=== PATIENT | male | born 1970 | race Caucasian/White ===

== ENCOUNTER 2016-03-28 14:25 | Inpatient (IN) | payer OTHER ==
[~2016-03-28] VITALS: Ht 190.5 cm; Wt 162.4 kg
[~2016-03-28 14:25] MED LIST: ABILIFY10 MG PO; ACID REDUCER 1150 MG PO; AMBIEN10 MG PO; AMOXICILLIN500 MG PO; ASPIR-LOW81 MG PO; ATARAX,VISTARIL50 MG PO; AUGMENTIN875 MG PO; BACTRIM,SEPT1 TABLET PO; CATAPRES0.2 MG PO; CIPRODEX OTIC7.5 ML LEFT EAR; CLARITIN,ALAVAR10 MG PO; CLINDAMYCIN HC300 MG PO; CLONIDINE HCL0.2 MG PO; COUMADIN5 MG PO; CUBICIN500 MG/10 IV; DEBROX15 ML RIGHT EAR; DOXYCYCLINE HY100 M1 PO; DOXYCYCLINE HY100 MG PO; Dulcolax PR; ECONAZOLE NITRA15 GM TP; ENDOCET 5-3251 EACH PO; FLONASE16 G1 BOTH NARES; Feosol PO; GABAPENTIN100 MG PO; GABAPENTIN300 MG PO; GABAPENTIN400 MG PO; HUMALOG MI100 UNIT/5 SC; HUMULIN 70100 UNIT/2; HUMULIN 70100 UNIT/2 SQ; ILOTYCIN1 GM RIGHT EYE; LANTUS 10100 UNITS/ SC; LANTUS 3 M100 UNITS1 SC; LISINOPRIL40 MG PO; LOPRESSOR25 MG PO; LORTAB 5-325 M1 EACH PO; NAPROXEN500 MG PO; NEURONTIN100 MG PO; NORCO 5/3251 TABLET PO; NOVOLOG MI100 UNIT/4 SC; NOVOLOG MI100 UNIT/M PO; NOVOLOG MI100 UNIT/M SC; Neurontin PO; PANTOPRAZOLE SO40 MG PO; PEN-VEE K,VEET500 MG PO; PRAVASTATIN SOD40 MG PO; PREDNISONE20 MG PO; PRINIVIL20 MG PO; PROTONIX40 MG PO; Pravachol PO; RANITIDINE HCL150 MG PO; SAPHRIS10 MG SL; TESSALON PERLE100 MG PO; TRAMADOL HCL50 MG PO; ULTRAM50 MG PO; VENLAFAXINE H37.5 M3 PO; VENLAFAXINE HC150 M1 PO; VENLAFAXINE HCL75 M3 PO; VENTOLIN HFA18 GM IH; VIAGRA50 MG PO; WESTCORT15 G1 TP; XARELTO20 MG PO; ZITHROMAX Z-PA250 MG PO
[2016-03-28 16:34] LABS: HEMATOCRIT 36.1 % (38.0-50.0); MCH 27.9 PG (29.0-34.0); MCV 84.5 FL (86-99); MEAN PLAT.VOLUME 10.5 uM^3 (9.0-12.4); PLATELET COUNT 274 K/uL (156-360); RBC DIS.WIDTH-CV 14.1 % (11.8-14.6); RBC DIS.WIDTH-SD 42.3 % (39-53); RED BLOOD COUNT 4.27 M/uL (4.00-5.50); WHITE BLOOD COUNT 11.4 K/uL (4.1-10.2)
[2016-03-28 16:43] LABS: CHLORIDE 101 mEq/L (99-109)
[2016-03-28 16:44] LABS: POTASSIUM 4.1 mEq/L (3.7-5.4); SODIUM 136 mEq/L (136-147)
[2016-03-28 16:45] LABS: GLUCOSE 102 mg/dL (70-99)
[2016-03-28 16:47] LABS: ANION GAP 11 MEQ/L (2-14)
[2016-03-28 16:49] LABS: GFR ESTIMATE (CALCULATED) > 59 mL/min/
[2016-03-28 16:50] LABS: UREA NITROGEN (BUN) 19 mg/dL (9-23)
[2016-03-28] MEDS ORDERED: NORCO 5/3251 TABLET PO (19:07)
[2016-03-28 21:59] VITALS: BP 162/74
[2016-03-28 22:36] LABS: INTER. NORMALIZED RATIO 1.2; PROTHROMBIN TIME 12.6 (9.2-11.2); PTT 38.3 (25-32)
[2016-03-29 05:58] LABS: POINT-OF-CARE METER ID UU13113717
[2016-03-29 06:03] LABS: EOSINOPHIL (%) 1.5 % (0-5); EOSINOPHIL COUNT 0.1 K/uL (0-0.3); HEMATOCRIT 33.4 % (38.0-50.0); IMMATURE GRANULOCYTE (%) 0.3 % (0.0-0.7); LYMPHOCYTE COUNT 2.2 K/uL (1.0-2.8); MCH 27.7 PG (29.0-34.0); MCHC 31.7 G/DL (30.0-36.0); MCV 87.4 FL (86-99); MEAN PLAT.VOLUME 10.5 uM^3 (9.0-12.4); MONOCYTE (%) 13.4 % (3-12); MONOCYTE COUNT 1.2 K/uL (0-0.8); NEUTROPHIL (%) 60.3 % (45-76); NEUTROPHIL COUNT 5.3 K/uL (1.8-6.4); PLATELET COUNT 231 K/uL (156-360); RBC DIS.WIDTH-CV 14.5 % (11.8-14.6); RBC DIS.WIDTH-SD 45.2 % (39-53); RED BLOOD COUNT 3.82 M/uL (4.00-5.50); WHITE BLOOD COUNT 8.9 K/uL (4.1-10.2)
[2016-03-29 06:59] LABS: ANION GAP 7 MEQ/L (2-14); CHLORIDE 101 MEQ/L (99-109); POTASSIUM 4.1 MEQ/L (3.7-5.4); SAMPLE HEMOLYSIS CHECK 1; SAMPLE ICTERIC CHECK 0; SAMPLE LIPEMIA CHECK 0; SODIUM 136 MEQ/L (136-147)
[2016-03-29 07:04] LABS: GFR ESTIMATE (CALCULATED) > 59 mL/min/; GLUCOSE 133 mg/dL (70-99); UREA NITROGEN (BUN) 19 mg/dL (9-23)
[2016-03-29 08:15] VITALS: BP 143/73
[2016-03-29 17:11] LABS: POINT-OF-CARE METER ID UU13113725
[2016-03-29 17:43] LABS: INTER. NORMALIZED RATIO 1.3; PROTHROMBIN TIME 13.1 (9.2-11.2)
[2016-03-29 20:58] LABS: POINT-OF-CARE METER ID UU13113717
[2016-03-29 22:25] VITALS: BP 134/75
[2016-03-30 05:53] LABS: POINT-OF-CARE METER ID UU13113717
[2016-03-30 06:46] LABS: INTER. NORMALIZED RATIO 1.4; PROTHROMBIN TIME 14.1 (9.2-11.2)
[2016-03-30 07:01] LABS: POINT-OF-CARE METER ID UU13113725
[2016-03-30 09:04] VITALS: BP 169/74
[2016-03-30 15:00] VITALS: BP 176/75
[2016-03-30 21:06] LABS: POINT-OF-CARE METER ID UU13113717
[2016-03-30 22:56] VITALS: BP 122/58
[2016-03-31 05:52] LABS: POINT-OF-CARE METER ID UU13113725
[2016-03-31 07:12] LABS: INTER. NORMALIZED RATIO 1.6; PROTHROMBIN TIME 16.1 (9.2-11.2)
[2016-03-31 08:41] VITALS: BP 141/66
[2016-03-31 11:41] LABS: POINT-OF-CARE METER ID UU13113725
[2016-03-31 12:28] VITALS: BP 141/66
[2016-03-31 16:25] VITALS: BP 158/82
[2016-03-31 17:02] LABS: POINT-OF-CARE METER ID UU13113717
[2016-03-31 21:15] LABS: POINT-OF-CARE METER ID UU13113725
[2016-03-31 23:14] VITALS: BP 168/85
[2016-04-01 06:04] LABS: POINT-OF-CARE METER ID UU13113725
[2016-04-01 06:26] LABS: POINT-OF-CARE METER ID UU13113725
[2016-04-01 07:11] LABS: POINT-OF-CARE METER ID UU13113725
[2016-04-01 07:11] LABS: INTER. NORMALIZED RATIO 1.8; PROTHROMBIN TIME 18.2 (9.2-11.2)
[2016-04-01 07:16] LABS: GFR ESTIMATE (CALCULATED) > 59 mL/min/; UREA NITROGEN (BUN) 16 mg/dL (9-23)
[2016-04-01 07:39] VITALS: BP 131/66
[2016-04-01 16:05] LABS: POINT-OF-CARE METER ID UU13113725
[2016-04-01 16:30] VITALS: BP 158/80
[2016-04-01 21:23] LABS: POINT-OF-CARE METER ID UU13113725
[2016-04-01 23:06] VITALS: BP 122/74
[2016-04-02 06:48] LABS: EOSINOPHIL (%) 4.1 % (0-5); EOSINOPHIL COUNT 0.2 K/uL (0-0.3); HEMATOCRIT 30.5 % (38.0-50.0); IMMATURE GRANULOCYTE (%) 0.2 % (0.0-0.7); LYMPHOCYTE COUNT 1.6 K/uL (1.0-2.8); MCH 27.5 PG (29.0-34.0); MCHC 31.5 G/DL (30.0-36.0); MCV 87.4 FL (86-99); MEAN PLAT.VOLUME 10.1 uM^3 (9.0-12.4); MONOCYTE COUNT 0.5 K/uL (0-0.8); NEUTROPHIL (%) 53.7 % (45-76); NEUTROPHIL COUNT 2.7 K/uL (1.8-6.4); PLATELET COUNT 276 K/uL (156-360); RBC DIS.WIDTH-CV 14.4 % (11.8-14.6); RBC DIS.WIDTH-SD 45.6 % (39-53); RED BLOOD COUNT 3.49 M/uL (4.00-5.50)
[2016-04-02 06:52] LABS: WHITE BLOOD COUNT 5.1 K/uL (4.1-10.2)
[2016-04-02 06:57] LABS: INTER. NORMALIZED RATIO 1.9; PROTHROMBIN TIME 19.9 (9.2-11.2)
[2016-04-02 07:10] LABS: ANION GAP 6 MEQ/L (2-14); CHLORIDE 104 MEQ/L (99-109); GFR ESTIMATE (CALCULATED) > 59 mL/min/; GLUCOSE 122 mg/dL (70-99); SAMPLE HEMOLYSIS CHECK 0; SAMPLE ICTERIC CHECK 0; SAMPLE LIPEMIA CHECK 0; SODIUM 139 MEQ/L (136-147); UREA NITROGEN (BUN) 16 mg/dL (9-23)
[2016-04-02 08:26] VITALS: BP 137/75
[2016-04-02 16:34] LABS: POINT-OF-CARE METER ID UU13113717
[2016-04-02 18:00] VITALS: BP 164/79
[2016-04-02 20:51] LABS: POINT-OF-CARE METER ID UU13113717
[2016-04-02 23:14] VITALS: BP 129/59
[2016-04-03 03:25] VITALS: BP 139/67
[2016-04-03 06:41] LABS: HEMATOCRIT 33.2 % (38.0-50.0); MCH 27.5 PG (29.0-34.0); MCHC 31.6 G/DL (30.0-36.0); MCV 86.9 FL (86-99); MEAN PLAT.VOLUME 9.6 uM^3 (9.0-12.4); PLATELET COUNT 298 K/uL (156-360); RBC DIS.WIDTH-CV 14.2 % (11.8-14.6); RBC DIS.WIDTH-SD 44.7 % (39-53); RED BLOOD COUNT 3.82 M/uL (4.00-5.50); WHITE BLOOD COUNT 6.4 K/uL (4.1-10.2)
[2016-04-03 06:49] LABS: INTER. NORMALIZED RATIO 1.9; PROTHROMBIN TIME 20.1 (9.2-11.2)
[2016-04-03 07:14] LABS: ANION GAP 6 MEQ/L (2-14); CHLORIDE 100 MEQ/L (99-109); GFR ESTIMATE (CALCULATED) > 59 mL/min/; MAGNESIUM 1.8 mg/dl (1.3-2.7); POTASSIUM 4.5 MEQ/L (3.7-5.4); SAMPLE HEMOLYSIS CHECK 0; SAMPLE ICTERIC CHECK 0; SAMPLE LIPEMIA CHECK 0; SODIUM 136 MEQ/L (136-147); UREA NITROGEN (BUN) 18 mg/dL (9-23)
[2016-04-03 07:16] LABS: GLUCOSE 212 mg/dL (70-99)
[2016-04-03 08:15] VITALS: BP 138/83
[2016-04-03 12:50] LABS: POINT-OF-CARE METER ID UU13113717
[2016-04-03 16:08] VITALS: BP 150/84
[2016-04-03 16:27] LABS: POINT-OF-CARE METER ID UU13113725
[2016-04-03 21:03] LABS: POINT-OF-CARE METER ID UU13113717
[2016-04-03 22:55] VITALS: BP 134/75
[2016-04-04 06:10] LABS: POINT-OF-CARE METER ID UU13113717
[2016-04-04 08:16] VITALS: BP 147/72
[2016-04-04 09:49] LABS: INTER. NORMALIZED RATIO 2.1; PROTHROMBIN TIME 21.4 (9.2-11.2)
[2016-04-04 10:01] LABS: POINT-OF-CARE METER ID UU13113717
[2016-04-04 10:02] LABS: POINT-OF-CARE METER ID UU13113725
[2016-04-04 10:48] LABS: POINT-OF-CARE METER ID UU13113725
[2016-04-04 11:34] LABS: POINT-OF-CARE METER ID UU13113717
[2016-04-04] MEDS ORDERED: BACTRIM,SEPT1 TABLET PO (13:32)
[2016-04-04] MEDS ORDERED: COUMADIN5 MG PO ×2 (14:07→16:14)
== END 2016-04-04 17:31 | disposition home or self-care (01) | DRG 637 ==
LOC: EME 14:25 → 5EAST 20:08 → EDOF 20:08 → 5EAST 21:29
PROVIDERS: Hospitalist; Internal Medicine; Physician Assistant
PROC: 0J9P0ZX Drainage of Left Lower Leg Subcutaneous Tissue and Fascia, Open Approach, Diagnostic (ICD-10-PCS; principal; 2016-03-31)
DX: E11.69 Type 2 diabetes mellitus with other specified complication (principal); L03.116 Cellulitis of left lower limb; L89.893 Pressure ulcer of other site, stage 3; L02.416 Cutaneous abscess of left lower limb; T87.89 Other complications of amputation stump; Z68.41 Body mass index [BMI] 40.0-44.9, adult; E11.42 Type 2 diabetes mellitus with diabetic polyneuropathy; Y83.5 Amputation of limb(s) as the cause of abnormal reaction of the patient, or of later complication, without mention of misadventure at the time of the procedure; E66.01 Morbid (severe) obesity due to excess calories; I48.0 Paroxysmal atrial fibrillation; Z89.511 Acquired absence of right leg below knee; Z89.022 Acquired absence of left finger(s); I10 Essential (primary) hypertension; K21.9 Gastro-esophageal reflux disease without esophagitis; F31.9 Bipolar disorder, unspecified; E11.65 Type 2 diabetes mellitus with hyperglycemia; Z86.73 Personal history of transient ischemic attack (TIA), and cerebral infarction without residual deficits; Z91.11 Patient's noncompliance with dietary regimen; E11.621 Type 2 diabetes mellitus with foot ulcer; L97.521 Non-pressure chronic ulcer of other part of left foot limited to breakdown of skin; Z86.14 Personal history of Methicillin resistant Staphylococcus aureus infection; I83.028 Varicose veins of left lower extremity with ulcer other part of lower leg; L97.821 Non-pressure chronic ulcer of other part of left lower leg limited to breakdown of skin; S91.002A Unspecified open wound, left ankle, initial encounter; B95.62 Methicillin resistant Staphylococcus aureus infection as the cause of diseases classified elsewhere
CPT/HCPCS: 73630; 73720; 80048; 80202; 82565; 82948; 83605; 83735; 84520; 85025; 85027; 85610; 85730; 87040; 87070; 87075; 87077; 87147; 87186; 87205; 93971; 99281; 99285; J0690; J1815; J2270; J3370

== ENCOUNTER 2016-05-03 21:48 | Emergency (ER) | payer OTHER ==
[~2016-05-03] VITALS: Ht 190.5 cm; Wt 160.0 kg
[2016-05-03 23:25] LABS: HEMATOCRIT 35.3 % (38.0-50.0); MCHC 32.9 G/DL (30.0-36.0); MCV 85.3 FL (86-99); MEAN PLAT.VOLUME 10.4 uM^3 (9.0-12.4); PLATELET COUNT 257 K/uL (156-360); RBC DIS.WIDTH-CV 14.3 % (11.8-14.6); RBC DIS.WIDTH-SD 43.4 % (39-53); RED BLOOD COUNT 4.14 M/uL (4.00-5.50)
[2016-05-03 23:32] LABS: CHLORIDE 105 mEq/L (99-109); POTASSIUM 3.8 mEq/L (3.7-5.4); SODIUM 140 mEq/L (136-147)
[2016-05-03 23:34] LABS: GLUCOSE 108 mg/dL (70-99)
[2016-05-03 23:36] LABS: ANION GAP 9 MEQ/L (2-14)
[2016-05-03 23:38] LABS: GFR ESTIMATE (CALCULATED) > 59 mL/min/
[2016-05-03 23:39] LABS: UREA NITROGEN (BUN) 25 mg/dL (9-23)
[2016-05-04 00:54] VITALS: BP 148/56
[2016-05-04 08:12] LABS: Estimated Average Glucose 194 mg/dL (70-123); HEMOGLOBIN A1c (GLYCOHEMOGLOB) 8.4 % HGB (Below 5.7)
== END 2016-05-04 00:55 | disposition home or self-care (01) ==
LOC: EME 21:48
PROVIDERS: Emergency Medicine
DX: S83.92XA Sprain of unspecified site of left knee, initial encounter (principal); E11.9 Type 2 diabetes mellitus without complications; I10 Essential (primary) hypertension; F31.9 Bipolar disorder, unspecified; S81.802A Unspecified open wound, left lower leg, initial encounter; K21.9 Gastro-esophageal reflux disease without esophagitis; Z89.511 Acquired absence of right leg below knee; Z89.021 Acquired absence of right finger(s); Z79.01 Long term (current) use of anticoagulants; Z79.4 Long term (current) use of insulin
CPT/HCPCS: 73564; 80048; 83036; 85027; 93971

== ENCOUNTER 2016-05-22 10:03 | Inpatient (IN) | payer OTHER ==
[~2016-05-22] VITALS: Ht 190.5 cm; Wt 161.9 kg
[2016-05-22 16:00] VITALS: BP 177/95
[2016-05-22 17:11] LABS: POINT-OF-CARE METER ID UU14174225
[2016-05-22 19:52] VITALS: BP 161/96
[2016-05-22 21:31] LABS: POINT-OF-CARE METER ID UU14188625
[2016-05-22 23:48] VITALS: BP 196/91
[2016-05-23 04:28] VITALS: BP 164/93
[2016-05-23 06:51] LABS: HEMATOCRIT 35.8 % (38.0-50.0); MCH 26.3 PG (29.0-34.0); MCHC 30.7 G/DL (30.0-36.0); MCV 85.4 FL (86-99); MEAN PLAT.VOLUME 10.1 uM^3 (9.0-12.4); PLATELET COUNT 307 K/uL (156-360); RBC DIS.WIDTH-CV 14.3 % (11.8-14.6); RED BLOOD COUNT 4.19 M/uL (4.00-5.50); WHITE BLOOD COUNT 4.8 K/uL (4.1-10.2)
[2016-05-23 07:16] LABS: INTER. NORMALIZED RATIO 2.6; PROTHROMBIN TIME 27.6 (9.2-11.2)
[2016-05-23 07:18] LABS: ANION GAP 6 MEQ/L (2-14); CHLORIDE 104 MEQ/L (99-109); GFR ESTIMATE (CALCULATED) > 59 mL/min/; GLUCOSE 89 mg/dL (70-99); POTASSIUM 4.2 MEQ/L (3.7-5.4); SAMPLE HEMOLYSIS CHECK 0; SAMPLE ICTERIC CHECK 0; SAMPLE LIPEMIA CHECK 0; SODIUM 140 MEQ/L (136-147); UREA NITROGEN (BUN) 19 mg/dL (9-23)
[2016-05-23 08:31] VITALS: BP 122/72
[2016-05-23] MEDS ORDERED: LANTUS 10100 UNITS/ SC (09:26)
[2016-05-23] MEDS ORDERED: HUMALOG MI100 UNIT/5 SC ×2 (09:28→09:29)
[2016-05-23] MEDS ORDERED: WARFARIN SODIU2.5 MG PO (09:33)
[2016-05-23] MEDS ORDERED: WARFARIN SODIUM5 MG PO ×2 (09:34)
[2016-05-23 12:27] LABS: POINT-OF-CARE USER ID STWAMT51
[2016-05-23 12:38] VITALS: BP 130/60
[2016-05-23 15:06] VITALS: BP 160/100
[2016-05-23 19:54] VITALS: BP 176/79
[2016-05-23 21:51] LABS: POINT-OF-CARE METER ID UU14188625
[2016-05-23 23:46] VITALS: BP 180/77
[2016-05-24 03:43] VITALS: BP 164/95
[2016-05-24 07:06] LABS: EOSINOPHIL (%) 3.7 % (0-5); EOSINOPHIL COUNT 0.2 K/uL (0-0.3); HEMATOCRIT 32.9 % (38.0-50.0); LYMPHOCYTE COUNT 1.4 K/uL (1.0-2.8); MCH 26.4 PG (29.0-34.0); MCHC 30.7 G/DL (30.0-36.0); MCV 85.9 FL (86-99); MEAN PLAT.VOLUME 9.7 uM^3 (9.0-12.4); MONOCYTE COUNT 0.7 K/uL (0-0.8); NEUTROPHIL (%) 49.9 % (45-76); NEUTROPHIL COUNT 2.2 K/uL (1.8-6.4); PLATELET COUNT 280 K/uL (156-360); RBC DIS.WIDTH-CV 14.4 % (11.8-14.6); RED BLOOD COUNT 3.83 M/uL (4.00-5.50); WHITE BLOOD COUNT 4.3 K/uL (4.1-10.2)
[2016-05-24 07:37] LABS: ANION GAP 6 MEQ/L (2-14); CHLORIDE 102 MEQ/L (99-109); GFR ESTIMATE (CALCULATED) > 59 mL/min/; POTASSIUM 4.5 MEQ/L (3.7-5.4); SAMPLE HEMOLYSIS CHECK 0; SAMPLE ICTERIC CHECK 0; SAMPLE LIPEMIA CHECK 0; SODIUM 136 MEQ/L (136-147); UREA NITROGEN (BUN) 17 mg/dL (9-23)
[2016-05-24 07:38] LABS: GLUCOSE 203 mg/dL (70-99)
[2016-05-24 07:57] VITALS: BP 136/81
[2016-05-24 09:45] LABS: INTER. NORMALIZED RATIO 1.9; PROTHROMBIN TIME 19.6 (9.2-11.2)
[2016-05-24 11:13] VITALS: BP 129/76
[2016-05-24 15:01] VITALS: BP 123/72
[2016-05-24 20:32] VITALS: BP 160/72
[2016-05-24 23:48] LABS: POINT-OF-CARE METER ID UU14188625
[2016-05-24 23:58] VITALS: BP 164/88
[2016-05-25 04:07] VITALS: BP 169/80
[2016-05-25 08:05] VITALS: BP 157/79
[2016-05-25 08:56] LABS: EOSINOPHIL (%) 4.4 % (0-5); EOSINOPHIL COUNT 0.2 K/uL (0-0.3); IMMATURE GRANULOCYTE (%) 0.2 % (0.0-0.7); LYMPHOCYTE COUNT 1.3 K/uL (1.0-2.8); MCH 26.7 PG (29.0-34.0); MCHC 31.1 G/DL (30.0-36.0); MCV 85.8 FL (86-99); MEAN PLAT.VOLUME 9.6 uM^3 (9.0-12.4); MONOCYTE (%) 12.9 % (3-12); MONOCYTE COUNT 0.6 K/uL (0-0.8); NEUTROPHIL (%) 56.2 % (45-76); NEUTROPHIL COUNT 2.8 K/uL (1.8-6.4); PLATELET COUNT 294 K/uL (156-360); RBC DIS.WIDTH-CV 14.5 % (11.8-14.6); RBC DIS.WIDTH-SD 45.1 % (39-53); RED BLOOD COUNT 4.31 M/uL (4.00-5.50)
[2016-05-25 09:06] LABS: INTER. NORMALIZED RATIO 1.7; PROTHROMBIN TIME 17.5 (9.2-11.2)
[2016-05-25 10:22] LABS: ANION GAP 11 MEQ/L (2-14); C-REACTIVE PROTEIN 22.2 MG/L (0-10); CHLORIDE 100 MEQ/L (99-109); GFR ESTIMATE (CALCULATED) > 59 mL/min/; POTASSIUM 4.1 MEQ/L (3.7-5.4); SAMPLE HEMOLYSIS CHECK 0; SAMPLE ICTERIC CHECK 0; SAMPLE LIPEMIA CHECK 0; SODIUM 137 MEQ/L (136-147); UREA NITROGEN (BUN) 15 mg/dL (9-23)
[2016-05-25 10:23] LABS: GLUCOSE 113 mg/dL (70-99)
[2016-05-25 10:40] LABS: ERTH.SED.RATE 116 MM/HR (0-15)
[2016-05-25 12:55] LABS: POINT-OF-CARE METER ID UU14188625
[2016-05-25 13:44] VITALS: BP 150/64
[2016-05-25] MEDS ORDERED: VANCOMYCIN HCL1 GM IV (14:20)
[2016-05-25 15:30] VITALS: BP 154/71
[2016-05-25 17:09] LABS: POINT-OF-CARE METER ID UU14174225
[2016-05-25 19:40] VITALS: BP 188/87
[2016-05-25 21:14] LABS: POINT-OF-CARE METER ID UU14174225
[2016-05-26] VITALS: BP 156/73
[2016-05-26 04:00] VITALS: BP 137/78
[2016-05-26 05:17] VITALS: BP 137/78
[2016-05-26 07:23] VITALS: BP 126/63
[2016-05-26 11:08] VITALS: BP 118/66
[2016-05-26 15:10] LABS: INTER. NORMALIZED RATIO 1.7; PROTHROMBIN TIME 17.7 (9.2-11.2)
== END 2016-05-26 16:00 | disposition home health service (06) | DRG 540 ==
LOC: 5EAST 10:03 → 5SOUTH 13:57 → 2SOUTH 13:57 → 5SOUTH 15:15
PROVIDERS: Internal Medicine; Internal Medicine Infectious Disease; Student in an Organized Health Care Education/Training Program
PROC: 02HV33Z Insertion of Infusion Device into Superior Vena Cava, Percutaneous Approach (ICD-10-PCS; principal; 2016-05-22)
DX: M86.172 Other acute osteomyelitis, left ankle and foot (principal); L03.116 Cellulitis of left lower limb; E11.42 Type 2 diabetes mellitus with diabetic polyneuropathy; E11.51 Type 2 diabetes mellitus with diabetic peripheral angiopathy without gangrene; Z68.41 Body mass index [BMI] 40.0-44.9, adult; M21.172 Varus deformity, not elsewhere classified, left ankle; E66.01 Morbid (severe) obesity due to excess calories; Z79.4 Long term (current) use of insulin; E11.65 Type 2 diabetes mellitus with hyperglycemia; Z89.511 Acquired absence of right leg below knee; F31.9 Bipolar disorder, unspecified; I10 Essential (primary) hypertension; I48.0 Paroxysmal atrial fibrillation; Z79.01 Long term (current) use of anticoagulants; L97.329 Non-pressure chronic ulcer of left ankle with unspecified severity; Z86.73 Personal history of transient ischemic attack (TIA), and cerebral infarction without residual deficits; Z86.14 Personal history of Methicillin resistant Staphylococcus aureus infection; M65.872 Other synovitis and tenosynovitis, left ankle and foot
CPT/HCPCS: 76937; 80048; 80202; 82948; 85025; 85027; 85610; 85651; 86140; 93926; J1815; J2543; J3370; J7030; J7050

== ENCOUNTER 2016-07-18 17:56 | Observation (INO) | payer OTHER ==
[~2016-07-18] VITALS: Ht 190.5 cm; Wt 153.0 kg
[~2016-07-18 17:56] MED LIST changes: +VANCOMYCIN HCL1 GM IV; +WARFARIN SODIU2.5 MG PO; +WARFARIN SODIUM5 MG PO
[2016-07-18 18:50] LABS: EOSINOPHIL (%) 2.1 % (0-5); EOSINOPHIL COUNT 0.2 K/uL (0-0.3); HEMATOCRIT 36.5 % (38.0-50.0); IMMATURE GRANULOCYTE (%) 0.3 % (0.0-0.7); INSTRUMENT ABS NEUTROPHIL CT 5.9 K/uL; LYMPHOCYTE COUNT 1.1 K/uL (1.0-2.8); MCH 28.5 PG (29.0-34.0); MCHC 33.2 G/DL (30.0-36.0); MCV 85.9 FL (86-99); MEAN PLAT.VOLUME 10.5 uM^3 (9.0-12.4); MONOCYTE COUNT 0.5 K/uL (0-0.8); NEUTROPHIL (%) 76.1 % (45-76); NEUTROPHIL COUNT 5.9 K/uL (1.8-6.4); PLATELET COUNT 278 K/uL (156-360); RBC DIS.WIDTH-CV 14.6 % (11.8-14.6); RBC DIS.WIDTH-SD 45.2 % (39-53); RED BLOOD COUNT 4.25 M/uL (4.00-5.50); WHITE BLOOD COUNT 7.7 K/uL (4.1-10.2)
[2016-07-18 19:01] LABS: CHLORIDE 106 mEq/L (99-109); POTASSIUM 4.7 mEq/L (3.7-5.4); SODIUM 139 mEq/L (136-147)
[2016-07-18 19:03] LABS: GLUCOSE 186 mg/dL (70-99)
[2016-07-18 19:04] LABS: ANION GAP 8 MEQ/L (2-14); INTER. NORMALIZED RATIO 2.2; PROTHROMBIN TIME 23.2 (9.2-11.2)
[2016-07-18 19:07] LABS: GFR ESTIMATE (CALCULATED) 54 mL/min/
[2016-07-18 19:08] LABS: UREA NITROGEN (BUN) 31 mg/dL (9-23)
[2016-07-18] MEDS ORDERED: NORVASC5 MG PO (20:28)
[2016-07-18] MEDS ORDERED: BACTRIM,SEPT1 TABLET PO (20:29)
[2016-07-18 21:13] LABS: POINT-OF-CARE METER ID UU14100415
[2016-07-18 21:16] LABS: HDL CHOLESTEROL 23 MG/DL (Desirable>=40); LDL CHOLESTEROL 29 mg/dL (Desirable<100); NON-HDL CHOLESTEROL 85 mg/dL (Desirable<160); TOTAL CHOLESTEROL 108 mg/dL (Desirable<200); TRIGLYCERIDES 280 MG/DL (Normal: <150)
[2016-07-18 22:09] VITALS: BP 162/74
[2016-07-18 22:26] LABS: POINT-OF-CARE METER ID UU13113700
[2016-07-19 04:00] VITALS: BP 108/57
[2016-07-19 05:44] LABS: INTER. NORMALIZED RATIO 2.2
[2016-07-19 07:44] LABS: Estimated Average Glucose 169 mg/dL (70-123); HEMOGLOBIN A1c (GLYCOHEMOGLOB) 7.5 % HGB (Below 5.7)
[2016-07-19 07:45] VITALS: BP 138/76
[2016-07-19 07:54] LABS: POINT-OF-CARE METER ID UU13113700
[2016-07-19 09:26] LABS: ANION GAP 7 MEQ/L (2-14); CHLORIDE 105 MEQ/L (99-109); GFR ESTIMATE (CALCULATED) > 59 mL/min/; GLUCOSE 183 mg/dL (70-99); POTASSIUM 4.4 MEQ/L (3.7-5.4); SAMPLE HEMOLYSIS CHECK 0; SAMPLE ICTERIC CHECK 0; SAMPLE LIPEMIA CHECK 0; SODIUM 139 MEQ/L (136-147); UREA NITROGEN (BUN) 28 mg/dL (9-23)
[2016-07-19] MEDS ORDERED: LO-DOSE ASPIRIN81 M2 PO (10:59)
== END 2016-07-19 14:21 | disposition home or self-care (01) ==
LOC: EME 17:56 → 5WEST 19:49 → EDOF 19:49 → 5WEST 22:03
PROVIDERS: Emergency Medicine; Hospitalist; Internal Medicine; Physician Assistant Medical
PROC: 0HBLXZZ Excision of Left Lower Leg Skin, External Approach (ICD-10-PCS; principal; 2016-07-19)
DX: R20.2 Paresthesia of skin (principal); N17.9 Acute kidney failure, unspecified; T81.89XA Other complications of procedures, not elsewhere classified, initial encounter; Y84.8 Other medical procedures as the cause of abnormal reaction of the patient, or of later complication, without mention of misadventure at the time of the procedure; E11.65 Type 2 diabetes mellitus with hyperglycemia; E11.42 Type 2 diabetes mellitus with diabetic polyneuropathy; E86.0 Dehydration; I48.91 Unspecified atrial fibrillation; I10 Essential (primary) hypertension; E78.5 Hyperlipidemia, unspecified; E11.319 Type 2 diabetes mellitus with unspecified diabetic retinopathy without macular edema; I87.8 Other specified disorders of veins; F31.9 Bipolar disorder, unspecified; E66.01 Morbid (severe) obesity due to excess calories; K21.9 Gastro-esophageal reflux disease without esophagitis; Z86.73 Personal history of transient ischemic attack (TIA), and cerebral infarction without residual deficits; Z68.42 Body mass index [BMI] 45.0-49.9, adult; Z89.511 Acquired absence of right leg below knee
CPT/HCPCS: 70450; 70551; 80048; 80061; 82948; 83036; 85025; 85610; 93005; 93880; 99281; 99285; G0378; J1815; J7030

== ENCOUNTER 2016-09-01 12:25 | Emergency (ER) | payer OTHER ==
[~2016-09-01] VITALS: Ht 190.5 cm; Wt 164.2 kg
[~2016-09-01 12:25] MED LIST changes: +LO-DOSE ASPIRIN81 M2 PO; +NORVASC5 MG PO
[2016-09-01] MEDS ORDERED: BACTRIM,SEPT1 TABLET PO (13:43)
[2016-09-01 14:11] VITALS: BP 150/65
[2016-09-07] MEDS ORDERED: ASPIRIN325 MG PO (13:27)
[2016-09-07] MEDS ORDERED: PREVACID30 MG PO (13:28)
== END 2016-09-01 14:12 | disposition home or self-care (01) ==
LOC: EME 12:25
DX: E11.622 Type 2 diabetes mellitus with other skin ulcer (principal); L97.329 Non-pressure chronic ulcer of left ankle with unspecified severity; L03.116 Cellulitis of left lower limb; I10 Essential (primary) hypertension; Z86.73 Personal history of transient ischemic attack (TIA), and cerebral infarction without residual deficits; Z79.4 Long term (current) use of insulin; Z79.01 Long term (current) use of anticoagulants
CPT/HCPCS: 87070; 87075; 87077; 87147; 87186; 87205; 99281; 99284

== ENCOUNTER → 2016-09-07 | Outpatient (CLI) | payer OTHER ==
[~2016-09-07] MED LIST changes: +ASPIRIN325 MG PO; +PREVACID30 MG PO
== END | disposition home or self-care (01) ==
LOC: PICC 12:49
DX: M65.072 Abscess of tendon sheath, left ankle and foot (principal)
CPT/HCPCS: 76937

== ENCOUNTER 2016-10-28 01:44 | Inpatient (IN) | payer OTHER ==
[~2016-10-28] VITALS: Ht 190.5 cm; Wt 158.2 kg
[2016-10-28 02:19] LABS: HEMATOCRIT 32.7 % (38.0-50.0); MCH 28.2 PG (29.0-34.0); MCHC 32.1 G/DL (30.0-36.0); MCV 87.9 FL (86-99); MEAN PLAT.VOLUME 8.9 uM^3 (9.0-12.4); PLATELET COUNT 295 K/uL (156-360); RBC DIS.WIDTH-CV 13.7 % (11.8-14.6); RBC DIS.WIDTH-SD 44.1 % (39-53); RED BLOOD COUNT 3.72 M/uL (4.00-5.50); WHITE BLOOD COUNT 7.4 K/uL (4.1-10.2)
[2016-10-28 02:37] LABS: CHLORIDE 104 mEq/L (99-109); POTASSIUM 4.1 mEq/L (3.7-5.4); SODIUM 140 mEq/L (136-147)
[2016-10-28 02:39] LABS: GLUCOSE 175 mg/dL (70-99)
[2016-10-28 02:40] LABS: ANION GAP 9 MEQ/L (2-14)
[2016-10-28 02:43] LABS: GFR ESTIMATE (CALCULATED) > 59 mL/min/
[2016-10-28 02:44] LABS: UREA NITROGEN (BUN) 18 mg/dL (9-23)
[2016-10-28 02:51] LABS: ERTH.SED.RATE 84 MM/HR (0-15)
[2016-10-28 03:47] LABS: C-REACTIVE PROTEIN 228.5 MG/L (0-10); SAMPLE HEMOLYSIS CHECK 0; SAMPLE ICTERIC CHECK 0; SAMPLE LIPEMIA CHECK 0
[2016-10-28] MEDS ORDERED: DYNAPEN500 MG PO (05:28)
[2016-10-28] MEDS ORDERED: HUMALOG MI100 UNIT/5 SC (05:32)
[2016-10-28 06:26] VITALS: BP 140/69
[2016-10-28 08:19] LABS: POINT-OF-CARE METER ID UU13113700
[2016-10-28 08:28] VITALS: BP 143/74
[2016-10-28 09:26] LABS: INTER. NORMALIZED RATIO 1.4; PROTHROMBIN TIME 15.5 SEC (10.2-12.9)
[2016-10-28 11:31] VITALS: BP 124/58
[2016-10-28 11:51] LABS: POINT-OF-CARE METER ID UU14162513
[2016-10-28] MEDS ORDERED: TYLENOL EXTRA500 MG PO (12:13)
[2016-10-28 16:29] VITALS: BP 138/65
[2016-10-28 17:15] LABS: POINT-OF-CARE METER ID UU14208753
[2016-10-28 20:28] VITALS: BP 165/80
[2016-10-28 23:32] VITALS: BP 128/661
[2016-10-29 04:21] VITALS: BP 132/65
[2016-10-29 05:49] LABS: EOSINOPHIL (%) 5.5 % (0-5); EOSINOPHIL COUNT 0.4 K/uL (0-0.3); HEMATOCRIT 30.5 % (38.0-50.0); IMMATURE GRANULOCYTE (%) 0.3 % (0.0-0.7); INSTRUMENT ABS NEUTROPHIL CT 4.1 K/uL; LYMPHOCYTE COUNT 1.5 K/uL (1.0-2.8); MCH 27.9 PG (29.0-34.0); MCHC 31.1 G/DL (30.0-36.0); MCV 89.4 FL (86-99); MEAN PLAT.VOLUME 9.8 uM^3 (9.0-12.4); MONOCYTE (%) 12.7 % (3-12); MONOCYTE COUNT 0.9 K/uL (0-0.8); NEUTROPHIL (%) 59.5 % (45-76); NEUTROPHIL COUNT 4.1 K/uL (1.8-6.4); PLATELET COUNT 330 K/uL (156-360); RBC DIS.WIDTH-CV 13.6 % (11.8-14.6); RBC DIS.WIDTH-SD 44.9 % (39-53); RED BLOOD COUNT 3.41 M/uL (4.00-5.50); WHITE BLOOD COUNT 6.9 K/uL (4.1-10.2)
[2016-10-29 06:00] LABS: INTER. NORMALIZED RATIO 1.5; PROTHROMBIN TIME 16.8 SEC (10.2-12.9)
[2016-10-29 08:11] VITALS: BP 152/72
[2016-10-29 11:29] LABS: POINT-OF-CARE METER ID UU14208753
[2016-10-29 15:30] VITALS: BP 144/67
[2016-10-29 16:17] LABS: POINT-OF-CARE METER ID UU14208753
[2016-10-29 22:57] LABS: METH RESISTANT S AUREUS PCR NEGATIVE (NEGATIVE)
[2016-10-29 22:59] LABS: PROBE CHECK PASS; SPECIMEN PROCESSING CONTROL PASS
[2016-10-30 00:31] VITALS: BP 110/60
[2016-10-30 06:48] LABS: INTER. NORMALIZED RATIO 1.6; PROTHROMBIN TIME 17.8 SEC (10.2-12.9)
[2016-10-30 07:28] VITALS: BP 137/80
[2016-10-30 08:09] LABS: POINT-OF-CARE METER ID UU14117124
[2016-10-30 11:44] LABS: POINT-OF-CARE METER ID UU14117124
[2016-10-30 15:57] LABS: POINT-OF-CARE METER ID UU14208753
[2016-10-30 16:07] VITALS: BP 143/64
[2016-10-30 16:20] LABS: POINT-OF-CARE METER ID UU14117124
[2016-10-30 19:27] VITALS: BP 138/63
[2016-10-30 23:49] VITALS: BP 115/58
[2016-10-31 06:21] LABS: POINT-OF-CARE METER ID UU14208753
[2016-10-31 07:13] LABS: INTER. NORMALIZED RATIO 1.6; PROTHROMBIN TIME 17.5 SEC (10.2-12.9)
[2016-10-31 07:45] VITALS: BP 153/67
[2016-10-31 08:18] LABS: MCH 27.9 PG (29.0-34.0); MCHC 31.4 G/DL (30.0-36.0); MCV 88.8 FL (86-99); MEAN PLAT.VOLUME 9.4 uM^3 (9.0-12.4); PLATELET COUNT 375 K/uL (156-360); RBC DIS.WIDTH-CV 13.5 % (11.8-14.6); RBC DIS.WIDTH-SD 44.2 % (39-53); RED BLOOD COUNT 3.94 M/uL (4.00-5.50); WHITE BLOOD COUNT 7.1 K/uL (4.1-10.2)
[2016-10-31 08:52] LABS: ANION GAP 7 MEQ/L (2-14); CHLORIDE 101 MEQ/L (99-109); GFR ESTIMATE (CALCULATED) > 59 mL/min/; GLUCOSE 102 mg/dL (70-99); POTASSIUM 4.9 MEQ/L (3.7-5.4); SAMPLE HEMOLYSIS CHECK 0; SAMPLE ICTERIC CHECK 0; SAMPLE LIPEMIA CHECK 0; SODIUM 139 MEQ/L (136-147); UREA NITROGEN (BUN) 15 mg/dL (9-23)
[2016-10-31] MEDS ORDERED: SANTYL30 GM TP (11:58)
[2016-10-31] MEDS ORDERED: NAFCIL2 GM IM (12:11)
[2016-10-31 16:14] VITALS: BP 157/71
[2016-11-01 00:23] VITALS: BP 129/59
[2016-11-01 05:58] LABS: POINT-OF-CARE METER ID UU14208753
[2016-11-01 06:50] LABS: INTER. NORMALIZED RATIO 1.7
[2016-11-01 07:39] VITALS: BP 172/75
[2016-11-01 12:00] VITALS: BP 152/60
[2016-11-01 15:12] VITALS: BP 149/65
[2016-11-01 16:25] LABS: POINT-OF-CARE METER ID UU14117124
[2016-11-01 21:51] VITALS: BP 185/85
[2016-11-01 21:57] LABS: POINT-OF-CARE METER ID UU14208753
[2016-11-01 23:46] VITALS: BP 141/64
[2016-11-02 06:13] LABS: POINT-OF-CARE METER ID UU14208753
[2016-11-02 06:41] LABS: HEMATOCRIT 30.5 % (38.0-50.0); MCH 27.7 PG (29.0-34.0); MCHC 31.1 G/DL (30.0-36.0); MCV 88.9 FL (86-99); MEAN PLAT.VOLUME 9.5 uM^3 (9.0-12.4); PLATELET COUNT 370 K/uL (156-360); RBC DIS.WIDTH-CV 13.2 % (11.8-14.6); RBC DIS.WIDTH-SD 43.1 % (39-53); RED BLOOD COUNT 3.43 M/uL (4.00-5.50); WHITE BLOOD COUNT 7.4 K/uL (4.1-10.2)
[2016-11-02 06:44] LABS: INTER. NORMALIZED RATIO 1.8; PROTHROMBIN TIME 19.7 SEC (10.2-12.9)
[2016-11-02 07:07] LABS: ANION GAP 6 MEQ/L (2-14); CHLORIDE 98 MEQ/L (99-109); GFR ESTIMATE (CALCULATED) > 59 mL/min/; GLUCOSE 132 mg/dL (70-99); POTASSIUM 4.7 MEQ/L (3.7-5.4); SAMPLE HEMOLYSIS CHECK 0; SAMPLE ICTERIC CHECK 0; SAMPLE LIPEMIA CHECK 0; SODIUM 135 MEQ/L (136-147); UREA NITROGEN (BUN) 20 mg/dL (9-23)
[2016-11-02 08:43] VITALS: BP 146/84
[2016-11-02 11:42] LABS: POINT-OF-CARE METER ID UU14117124
[2016-11-02 16:43] VITALS: BP 148/70
[2016-11-02 17:04] LABS: POINT-OF-CARE METER ID UU14117124
[2016-11-02 23:26] VITALS: BP 122/57
[2016-11-03 06:52] LABS: POINT-OF-CARE METER ID UU14188577
[2016-11-03 08:21] VITALS: BP 142/70
[2016-11-03 11:27] LABS: POINT-OF-CARE METER ID UU14188577
[2016-11-03 15:30] VITALS: BP 157/73
[2016-11-03 16:07] LABS: POINT-OF-CARE METER ID UU14117124
[2016-11-03 21:23] LABS: POINT-OF-CARE METER ID UU14117124
[2016-11-04 01:02] VITALS: BP 148/72
[2016-11-04 06:32] LABS: POINT-OF-CARE METER ID UU14188577
[2016-11-04 07:33] VITALS: BP 164/80
[2016-11-04 08:33] LABS: INTER. NORMALIZED RATIO 2.1; PROTHROMBIN TIME 24.2 SEC (10.2-12.9)
[2016-11-04 11:26] LABS: POINT-OF-CARE METER ID UU14208753
[2016-11-04] MEDS ORDERED: PERCOCET 5/31 TABLET PO (11:57)
== END 2016-11-04 14:58 | disposition home or self-care (01) | DRG 981 ==
LOC: EME 01:44 → EDOF 04:44 → ENRESERV 04:53 → 5WEST 06:18 → 3EAST 13:35 → 5WEST 13:35 → ENRESERV 13:48 → 3EAST 15:54
PROVIDERS: Emergency Medicine; Hospitalist; Internal Medicine; Physician Assistant; Physician Assistant Medical; Student in an Organized Health Care Education/Training Program
DX: E11.628 Type 2 diabetes mellitus with other skin complications (principal); E11.622 Type 2 diabetes mellitus with other skin ulcer; E11.42 Type 2 diabetes mellitus with diabetic polyneuropathy; E11.319 Type 2 diabetes mellitus with unspecified diabetic retinopathy without macular edema; E11.51 Type 2 diabetes mellitus with diabetic peripheral angiopathy without gangrene; L03.116 Cellulitis of left lower limb; Z68.41 Body mass index [BMI] 40.0-44.9, adult; L89.893 Pressure ulcer of other site, stage 3; I48.0 Paroxysmal atrial fibrillation; L97.529 Non-pressure chronic ulcer of other part of left foot with unspecified severity; I48.91 Unspecified atrial fibrillation; I10 Essential (primary) hypertension; E78.5 Hyperlipidemia, unspecified; K21.9 Gastro-esophageal reflux disease without esophagitis; F32.9 Major depressive disorder, single episode, unspecified; I25.10 Atherosclerotic heart disease of native coronary artery without angina pectoris; I87.8 Other specified disorders of veins; F41.9 Anxiety disorder, unspecified; M21.00 Valgus deformity, not elsewhere classified, unspecified site; E66.01 Morbid (severe) obesity due to excess calories; F31.9 Bipolar disorder, unspecified; M86.672 Other chronic osteomyelitis, left ankle and foot; B95.61 Methicillin susceptible Staphylococcus aureus infection as the cause of diseases classified elsewhere; Z79.01 Long term (current) use of anticoagulants; Z89.511 Acquired absence of right leg below knee; Z79.4 Long term (current) use of insulin; Z79.82 Long term (current) use of aspirin; Z86.73 Personal history of transient ischemic attack (TIA), and cerebral infarction without residual deficits; Z86.14 Personal history of Methicillin resistant Staphylococcus aureus infection; Z83.3 Family history of diabetes mellitus; L97.524 Non-pressure chronic ulcer of other part of left foot with necrosis of bone
CPT/HCPCS: 73610; 73720; 76937; 80048; 82948; 85025; 85027; 85610; 85651; 86140; 87070; 87075; 87205; 87641; 88305; 99281; 99285; A6260; J0131; J0690; J1170; J1815; J2250; S0020

== ENCOUNTER → 2016-12-15 | Outpatient (CLI) | payer OTHER ==
[~2016-12-15] MED LIST changes: +DYNAPEN500 MG PO; +NAFCIL2 GM IM; +PERCOCET 5/31 TABLET PO; +SANTYL30 GM TP; +TYLENOL EXTRA500 MG PO
== END ==
LOC: RAD 12-12 13:30 → MRI 12:56 → RAD 13:30
DX: R60.9 Edema, unspecified (principal); E11.9 Type 2 diabetes mellitus without complications; Z98.890 Other specified postprocedural states
CPT/HCPCS: 73720

== ENCOUNTER 2017-02-25 15:16 | Emergency (ER) | payer OTHER ==
[~2017-02-25] VITALS: Ht 190.5 cm; Wt 168.1 kg
[2017-02-25 15:56] LABS: HEMATOCRIT 31.1 % (38.0-50.0); MCH 26.6 PG (29.0-34.0); MCHC 31.8 G/DL (30.0-36.0); MCV 83.6 FL (86-99); MEAN PLAT.VOLUME 9.1 uM^3 (9.0-12.4); PLATELET COUNT 430 K/uL (156-360); RBC DIS.WIDTH-CV 14.6 % (11.8-14.6); RBC DIS.WIDTH-SD 44.7 % (39-53); RED BLOOD COUNT 3.72 M/uL (4.00-5.50); WHITE BLOOD COUNT 9.7 K/uL (4.1-10.2)
[2017-02-25 16:17] LABS: CHLORIDE 103 mEq/L (99-109); POTASSIUM 5.3 mEq/L (3.7-5.4); SODIUM 133 mEq/L (136-147)
[2017-02-25 16:19] LABS: GLUCOSE 146 mg/dL (70-99)
[2017-02-25 16:20] LABS: ANION GAP 9 MEQ/L (2-14)
[2017-02-25 16:23] LABS: GFR ESTIMATE (CALCULATED) 34 mL/min/
[2017-02-25 16:24] LABS: UREA NITROGEN (BUN) 47 mg/dL (9-23)
[2017-02-25 19:01] LABS: CHLORIDE 105 mEq/L (99-109); POTASSIUM 5.2 mEq/L (3.7-5.4); SODIUM 134 mEq/L (136-147)
[2017-02-25 19:04] LABS: GLUCOSE 126 mg/dL (70-99)
[2017-02-25 19:05] LABS: ANION GAP 7 MEQ/L (2-14)
[2017-02-25 19:06] LABS: TOTAL BILIRUBIN 0.2 mg/dL (0.0-1.0)
[2017-02-25 19:07] LABS: ALKALINE PHOSPHATASE 67 IU/L (3-129); GFR ESTIMATE (CALCULATED) 43 mL/min/
[2017-02-25 19:08] LABS: UREA NITROGEN (BUN) 42 mg/dL (9-23)
[2017-02-25 20:12] VITALS: BP 155/78
== END 2017-02-25 20:13 | disposition home or self-care (01) ==
LOC: EME 15:16
PROVIDERS: Nurse Practitioner Family
DX: M25.561 Pain in right knee (principal); M79.89 Other specified soft tissue disorders; Z89.511 Acquired absence of right leg below knee; N28.9 Disorder of kidney and ureter, unspecified; R94.4 Abnormal results of kidney function studies; I10 Essential (primary) hypertension; Z86.73 Personal history of transient ischemic attack (TIA), and cerebral infarction without residual deficits; E11.40 Type 2 diabetes mellitus with diabetic neuropathy, unspecified; Z79.4 Long term (current) use of insulin; Z79.01 Long term (current) use of anticoagulants; Z86.14 Personal history of Methicillin resistant Staphylococcus aureus infection
CPT/HCPCS: 73564; 80048; 80053; 85027; 93971; 99281; 99285; J7030